=== PATIENT | male | born 2000 | race African-American/Black ===

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

== ENCOUNTER 2020-07-11 19:21 | Emergency (ER) | payer MEDICAID ==
[~2020-07-11] VITALS: Ht 160 cm; Wt 55.1 kg
[~2020-07-11 19:21] MED LIST: LOPE2CAP PO; ONDA8TAB9 PO
[2020-07-11] MEDS ORDERED: normal saline 1000ML IV soln IVB STA (19:34)
[2020-07-11] MEDS ORDERED: diphenhydrAMINE 50 mg/ml inj IV ONE (19:35)
[2020-07-11] MEDS ORDERED: methylPREDNISolone sod succ 125mg/2ml vial IV ONE (19:35)
[2020-07-11] MEDS ORDERED: famotidine/PF 10 mg/ml inj IV ONE (19:35)
[2020-07-11] MEDS ORDERED: epiNEPHrine 1 mg/ml inj SQ ONE (19:35)
--- NOTE | 2020-07-11 19:51 | NUR ---
ADRENALIN GIVEN IM PER MD ORDER. AFTER MEDICATION ADMINISTRATION PT STATED HE FELT IF HIS TONGUE WAS NOT QUITE SWOLLEN
[2020-07-11] MEDS ORDERED: PRED10TA PO (20:09)
--- NOTE | 2020-07-11 20:10 | NUR ---
Pt wanting to leave AMA. Pt educated on risks and benefits.
[2020-07-11 20:11] VITALS: BP 136/70
== END 2020-07-11 20:30 | disposition left against medical advice (07) ==
LOC: ER 19:24
DX: T78.40XA Allergy, unspecified, initial encounter (principal); Z88.0 Allergy status to penicillin; Z88.8 Allergy status to other drugs, medicaments and biological substances; Z79.899 Other long term (current) drug therapy
CPT/HCPCS: 96361; 96372; 96374; 96375; 99284; J0171; J1200; J2930; J3490; J7030

== ENCOUNTER 2022-03-23 23:58 | Emergency (ER) | payer MEDICAID ==
[~2022-03-23] VITALS: Ht 154.9 cm; Wt 62.1 kg
[~2022-03-23 23:58] MED LIST changes: +PRED10TA PO
[2022-03-23 23:59] VITALS: BP 120/72
--- NOTE | 2022-03-24 01:58 | NUR ---
LACERATION IRR WITH [employer]ER[facility] WHAT[facility] BETIDINE SHADI. PT TOLERATED PRODCEDURE WELL WITH NO VERBAL OR VISUAL DISCOMFORT OR COMPLAINTS.
--- NOTE | 2022-03-24 03:01 | NUR ---
DRESSING APPLIED TO SUTURE REPAIR SITE.
== END 2022-03-24 03:02 | disposition home or self-care (01) ==
LOC: ER 23:59
DX: S61.213A Laceration without foreign body of left middle finger without damage to nail, initial encounter (principal); Z88.0 Allergy status to penicillin; Z88.8 Allergy status to other drugs, medicaments and biological substances; Z79.899 Other long term (current) drug therapy; X58.XXXA Exposure to other specified factors, initial encounter; Y93.89 Activity, other specified; Y92.89 Other specified places as the place of occurrence of the external cause; Y99.8 Other external cause status
CPT/HCPCS: 12001; 99282

== ENCOUNTER 2022-07-22 14:35 | Emergency (ER) | payer MEDICAID | END 2022-07-22 15:17 | disposition left against medical advice (07) | LOC: ER 14:36 | DX: M79.606 Pain in leg, unspecified (principal); Z53.21 Procedure and treatment not carried out due to patient leaving prior to being seen by health care provider ==

== ENCOUNTER 2023-02-17 18:35 | Emergency (ER) | payer MEDICAID ==
[~2023-02-17] VITALS: Ht 160 cm; Wt 60.9 kg
[2023-02-17 19:17] VITALS: BP 148/122
== END 2023-02-17 21:09 | disposition home or self-care (01) ==
LOC: ER 18:36
DX: S20.219A Contusion of unspecified front wall of thorax, initial encounter (principal); F12.90 Cannabis use, unspecified, uncomplicated; Z88.0 Allergy status to penicillin; Z88.8 Allergy status to other drugs, medicaments and biological substances; V89.2XXA Person injured in unspecified motor-vehicle accident, traffic, initial encounter; Y93.89 Activity, other specified; Y92.89 Other specified places as the place of occurrence of the external cause; Y99.8 Other external cause status
CPT/HCPCS: 71046; 99283

== ENCOUNTER 2023-07-07 17:20 | Emergency (ER) | payer MEDICAID ==
[~2023-07-07] VITALS: Ht 177.8 cm; Wt 61.4 kg
[2023-07-07] MEDS ORDERED: OLANZapine **IM** 10 mg inj. IM ONE (17:25)
[2023-07-07 18:03] LABS: EOSINOPHILS # (AUTO) 0.2 X10'3 (0-0.9); EOSINOPHILS % (AUTO) 3.7 % (0-6); HEMOGLOBIN 14.1 g/dl (14.0-17.9); LYMPHOCYTES # (AUTO) 1.6 X10'3 (1.1-4.8); LYMPHOCYTES % (AUTO) 37.4 % (21-51); MEAN CORPUSCULAR HEMOGLOBIN 29.5 PG (27.0-31.0); MEAN CORPUSCULAR HGB CONC 32.9 g/dL (33.0-36.5); MEAN CORPUSCULAR VOLUME 89.5 FL (78-98); MEAN PLATELET VOLUME 7.3 FL (7.4-10.4); MONOCYTES # (AUTO) 0.3 X10'3 (0-0.9); NEUTROPHILS # (AUTO) 2.2 X10'3 (1.8-7.7); NEUTROPHILS % (AUTO) 49.9 % (42-75); PLATELET COUNT 284 X10'3 (140-440); RED CELL DISTRIBUTION WIDTH 13.9 % (11.5-14.5); WHITE BLOOD COUNT 4.3 X10'3 (4.5-11.0)
[2023-07-07 18:07] LABS: ALANINE AMINOTRANSFERASE 35 U/L (12-78); ALBUMIN/GLOBULIN RATIO 1.2 (1.1-1.5); ALKALINE PHOSPHATASE 83 IU/L (46-116); ANION GAP 10 (8-16); ASPARTATE AMINO TRANSFERASE 31 U/L (10-37); BILIRUBIN,TOTAL 0.3 MG/DL (0.1-1.0); BLOOD UREA NITROGEN 7 MG/DL (7-18); BUN/CREATININE RATIO 9.7 (10.0-20.0); CALCIUM 8.6 MG/DL (8.5-10.1); CHLORIDE 108 MMOL/L (99-107); CREATININE 0.72 MG/DL (0.60-1.10); ETHANOL 131 MG/DL (<10); GLUCOSE 95 MG/DL (70-104); POTASSIUM 3.8 MMOL/L (3.5-5.1); SODIUM 143 MMOL/L (135-145); TOTAL CARBON DIOXIDE 24.7 MMOL/L (24-32); TOTAL PROTEIN 7.3 G/DL (6.4-8.2); eCRCL 140 ML/MIN; eGFR > 90 ML/MIN
--- NOTE | 2023-07-07 18:31 | NUR ---
patient released from behavioral restraints
--- NOTE | 2023-07-07 19:38 | NUR ---
Patient resting in bed quietly with eye closed. Pt provided with 2 warm blankets. No additional needs at this time.
--- NOTE | 2023-07-07 19:38 | NUR ---
PATIENT REFUSED A STRAIGHT CATHETER SUPPLIED URINAL AT BEDSIDE FOR PATIENT TO PROVIDE UA WHEN READY TO VOID
--- NOTE | 2023-07-07 21:58 | NUR ---
The patient moved to bed 22 from the main ER. He was cooperative but sleepy. He changed into green scrubs and he gave urine specimen. He was offered a snack but he declined.
[2023-07-07 22:23] LABS: URINE AMPHETAMINE SCREEN POSITIVE (Neg); URINE BARBITUATE SCREEN NEGATIVE (Neg); URINE BENZODIAZEPINES SCREEN NEGATIVE (Neg); URINE CANNABINOID SCREEN POSITIVE (Neg); URINE COCAINE SCREEN NEGATIVE (Neg); URINE METHADONE SCREEN NEGATIVE (Neg); URINE OPIATE SCREEN NEGATIVE (Neg); URINE PHENCYCLIDINE SCREEN NEGATIVE (Neg)
--- NOTE | 2023-07-07 22:32 | NUR ---
PACKET SENT TO [facility]
--- NOTE | 2023-07-07 22:47 | NUR ---
The patient appears to be sleeping
[2023-07-07 23:58] LABS: THYROID STIMULATING HORMONE 0.38 ulU/ml (0.34-4.50)
--- NOTE | 2023-07-08 00:59 | NUR ---
The patient appears to be sleeping
--- NOTE | 2023-07-08 03:01 | NUR ---
The patient appears to be sleeping
--- NOTE | 2023-07-08 05:11 | NUR ---
The patient appears to be sleeping
--- NOTE | 2023-07-08 08:30 | NUR ---
Pt. asleep in bed on left side. Pt. in no apparent distress.
--- NOTE | 2023-07-08 10:30 | NUR ---
Pt. awoke and eating breakfast.
[2023-07-08 10:56] LABS: BILIRUBIN,URINE NEGATIVE (Neg); CLARITY,URINE CLEAR (Clear); COLOR,URINE YELLOW (Yellow); GLUCOSE, URINE NEGATIVE (Neg); KETONES,URINE NEGATIVE (Neg); LEUKOCYTE ESTERASE ,URINE NEGATIVE (Neg); NITRITES, URINE NEGATIVE (Neg); OCCULT BLOOD,URINE NEGATIVE (Neg); PH,URINE 6.5 (4.8-8.0); PROTEIN,URINE NEGATIVE (Neg); UROBILINOGEN,URINE 0.2 E.U/dL (0.2-1.0)
[2023-07-08 10:58] LABS: UA COLLECTION TYPE NON-SPECIFIED
--- NOTE | 2023-07-08 11:50 | NUR ---
Met with patient in regards to substance/alcohol use and to see if patient was interested in resources for treatment options. Patient is interested in both in and out patient rehabs. I gave patient [facility] number to get that process started, a list of outpatient facilities, a card for [facility] and my card to call me with any questions.
--- NOTE | 2023-07-08 12:30 | NUR ---
Pt. asleep in bed on right side. Pt. in no apparent distress.
[2023-07-08 14:03] VITALS: BP 120/70; PULSE 71; RESP 18; TEMP 98.2; O2SAT 100
== END 2023-07-08 14:00 | disposition still patient (30) ==
LOC: EDBD 17:20 → ER 17:20
DX: Z20.822 Contact with and (suspected) exposure to COVID-19 (principal); T40.2X2A Poisoning by other opioids, intentional self-harm, initial encounter; R41.82 Altered mental status, unspecified; Y92.89 Other specified places as the place of occurrence of the external cause
CPT/HCPCS: 36415; 80053; 80305; 80320; 81003; 84443; 85025; 87811; 96372; 99285; J3490

== ENCOUNTER 2023-09-01 22:37 | Emergency (ER) | payer MEDICAID ==
[~2023-09-01] VITALS: Ht 154.9 cm; Wt 75.5 kg
[2023-09-01 22:38] VITALS: TEMP 95.5
[2023-09-01] MEDS ORDERED: normal saline 1000ML IV soln IVB ONE (22:50)
--- NOTE | 2023-09-01 23:19 | NUR ---
WARM BLANKETS PROVIDED FOR PATIENT. PATIENT ALERT AND ORIENTED. DENIES PAIN OR CONCERNS AT THIS TIME.
[2023-09-02] MEDS ORDERED: normal saline 1000ML IV soln IVB ONE (00:30)
[2023-09-02 00:56] LABS: HEMATOCRIT 43.5 % (42.0-52.0); MEAN CORPUSCULAR HEMOGLOBIN 29.9 PG (27.0-31.0); MEAN PLATELET VOLUME 7.7 FL (7.4-10.4)
[2023-09-02 00:58] LABS: BASOPHILS # (AUTO) 0.1 X10'3 (0-0.2); BASOPHILS % (AUTO) 0.6 % (0-1); EOSINOPHILS # (AUTO) 0.2 X10'3 (0-0.9); EOSINOPHILS % (AUTO) 2.2 % (0-6); HEMOGLOBIN 14.6 g/dl (14.0-17.9); LYMPHOCYTES # (AUTO) 4.4 X10'3 (1.1-4.8); LYMPHOCYTES % (AUTO) 46.9 % (21-51); MEAN CORPUSCULAR HGB CONC 33.5 g/dL (33.0-36.5); MEAN CORPUSCULAR VOLUME 89.1 FL (78-98); MONOCYTES # (AUTO) 1.1 X10'3 (0-0.9); MONOCYTES % (AUTO) 12.1 % (2-12); NEUTROPHILS # (AUTO) 3.6 X10'3 (1.8-7.7); NEUTROPHILS % (AUTO) 38.2 % (42-75); PLATELET COUNT 244 X10'3 (140-440); RED BLOOD COUNT 4.89 X10'6 (4.70-6.10); RED CELL DISTRIBUTION WIDTH 13.8 % (11.5-14.5); WHITE BLOOD COUNT 9.4 X10'3 (4.5-11.0)
[2023-09-02 01:04] LABS: APTT 26 SECONDS (22-32); INR 0.9 INR; PROTHROMBIN TIME 10.2 SECONDS (9.0-12.0)
[2023-09-02 01:16] LABS: ETHANOL 45 MG/DL (<10); MAGNESIUM 2.4 MG/DL (1.5-2.4); PHOSPHORUS 5.6 MG/DL (2.3-4.5); PRO BRAIN NATRIURETIC PEPTIDE < 30 PG/ML (0-125)
[2023-09-02 01:17] LABS: CREATINE KINASE 1147 U/L (39-308)
[2023-09-02 03:52] LABS: ALANINE AMINOTRANSFERASE 30 U/L (12-78); ALBUMIN 4.2 G/DL (3.4-5.0); ALBUMIN/GLOBULIN RATIO 1.2 (1.1-1.5); ALKALINE PHOSPHATASE 65 IU/L (46-116); ANION GAP 16 (8-16); ASPARTATE AMINO TRANSFERASE 49 U/L (10-37); BLOOD UREA NITROGEN 17 MG/DL (7-18); BUN/CREATININE RATIO 15.5 (10.0-20.0); CALCIUM 8.9 MG/DL (8.5-10.1); CHLORIDE 97 MMOL/L (99-107); GLUCOSE 187 MG/DL (70-104); POTASSIUM 3.3 MMOL/L (3.5-5.1); SODIUM 135 MMOL/L (135-145); TOTAL CARBON DIOXIDE 22.1 MMOL/L (24-32); TOTAL PROTEIN 7.6 G/DL (6.4-8.2); eCRCL 78 ML/MIN; eGFR > 90 ML/MIN
[2023-09-02] MEDS ORDERED: potassium Cl 20 mEq SR tablet PO STA (05:41)
--- NOTE | 2023-09-02 06:00 | NUR ---
Per MD the pt is up for D/C but does not have a home at this time. placed an order for social service consult. Once pt meets with social worker health services and is able to walk the pt may be D/C.
[2023-09-02 06:15] VITALS: BP 98/52; PULSE 97; RESP 16; O2SAT 98
--- NOTE | 2023-09-02 06:36 | NUR ---
received report from Andre PRESCOTT assuming care of pt resting quietly resps even and unlabored
[2023-09-02] MEDS ORDERED: BUPR1FIL3 SL (11:05)
--- NOTE | 2023-09-02 11:15 | NUR ---
Met with patient in regards to overdose and to see if patient was interested in resources for treatment options. Patient is interested in starting Suboxone. I spoke with Dr Andrade and he prescribed Suboxone for patient. Patient will continue treatment with [facility]. Patient has my card to call me with any questions.
== END 2023-09-02 09:58 | disposition home or self-care (01) ==
LOC: ER 22:37
DX: T40.411A Poisoning by fentanyl or fentanyl analogs, accidental (unintentional), initial encounter (principal); R41.82 Altered mental status, unspecified; Y92.89 Other specified places as the place of occurrence of the external cause
CPT/HCPCS: 36415; 71045; 80053; 80320; 82550; 83735; 83880; 84100; 84484; 85025; 85610; 85730; 93005; 96360; 96361; 99291; J7030

== ENCOUNTER 2023-09-19 14:51 | Emergency (ER) | payer MEDICAID ==
[~2023-09-19] VITALS: Ht 157.5 cm; Wt 65.5 kg
[2023-09-19 15:15] VITALS: BP 133/76; PULSE 99; RESP 18; TEMP 99.7; O2SAT 98
[2023-09-19] MEDS ORDERED: buprenorphine/naloxone 8MG-2MG SUBlingual film SL SCH ×2 (18:10→18:40)
--- NOTE | 2023-09-19 18:13 | NUR ---
pt was called for medication and left without discharge. XPLVN pt did not recieve medication prior to leaving.
[2023-09-20] MEDS ORDERED: BUPR1FIL3 SL (15:26)
== END 2023-09-19 19:37 | disposition home or self-care (01) ==
LOC: ER 14:51
DX: F11.10 Opioid abuse, uncomplicated (principal); F12.10 Cannabis abuse, uncomplicated; F15.10 Other stimulant abuse, uncomplicated; Z88.8 Allergy status to other drugs, medicaments and biological substances; Z88.0 Allergy status to penicillin; Z79.899 Other long term (current) drug therapy
CPT/HCPCS: 99283

== ENCOUNTER 2023-09-20 15:12 | Emergency (ER) | payer MEDICAID ==
[~2023-09-20] VITALS: Ht 160 cm; Wt 63.0 kg
[2023-09-20 15:16] VITALS: BP 118/75; PULSE 99; TEMP 97.8; O2SAT 98
[2023-09-20] MEDS ORDERED: BUPR1FIL3 SL (15:26)
--- NOTE | 2023-09-20 15:34 | NUR ---
Met with patient for Suboxone refill. Patient is still waiting for appt through [facility]. Spoke to Mitul and he will give patient a weeks supply.
[2023-09-20 15:36] VITALS: RESP 18
--- NOTE | 2023-09-20 15:50 | NUR ---
I have reviewed and agree with all interventions, assessments performed and documented by GENIE Solomon.
== END 2023-09-20 16:53 | disposition home or self-care (01) ==
LOC: ER 15:14
DX: F11.10 Opioid abuse, uncomplicated (principal); F12.10 Cannabis abuse, uncomplicated; F15.10 Other stimulant abuse, uncomplicated; Z88.8 Allergy status to other drugs, medicaments and biological substances; Z79.899 Other long term (current) drug therapy; Z88.0 Allergy status to penicillin
CPT/HCPCS: 99281

== ENCOUNTER 2023-09-22 11:24 | Emergency (ER) | payer MEDICAID ==
[~2023-09-22] VITALS: Ht 157.5 cm; Wt 62.4 kg
[~2023-09-22 11:24] MED LIST changes: +BUPR1FIL3 SL; -LOPE2CAP PO; -ONDA8TAB9 PO; -PRED10TA PO
[2023-09-22 11:27] VITALS: BP 156/89; PULSE 99; RESP 16; TEMP 98.3; O2SAT 98
[2023-09-22 12:24] LABS: BASOPHILS # (AUTO) 0.1 X10'3 (0-0.2); EOSINOPHILS # (AUTO) 0.1 X10'3 (0-0.9); EOSINOPHILS % (AUTO) 1.9 % (0-6); HEMATOCRIT 46.8 % (42.0-52.0); HEMOGLOBIN 15.8 g/dl (14.0-17.9); LYMPHOCYTES # (AUTO) 2.1 X10'3 (1.1-4.8); LYMPHOCYTES % (AUTO) 38.2 % (21-51); MEAN CORPUSCULAR HEMOGLOBIN 30.2 PG (27.0-31.0); MEAN CORPUSCULAR HGB CONC 33.7 g/dL (33.0-36.5); MEAN CORPUSCULAR VOLUME 89.5 FL (78-98); MONOCYTES # (AUTO) 0.4 X10'3 (0-0.9); MONOCYTES % (AUTO) 7.6 % (2-12); NEUTROPHILS # (AUTO) 2.8 X10'3 (1.8-7.7); NEUTROPHILS % (AUTO) 51.3 % (42-75); PLATELET COUNT 348 X10'3 (140-440); RED BLOOD COUNT 5.23 X10'6 (4.70-6.10); RED CELL DISTRIBUTION WIDTH 14.2 % (11.5-14.5); WHITE BLOOD COUNT 5.5 X10'3 (4.5-11.0)
[2023-09-22 12:53] LABS: ALANINE AMINOTRANSFERASE 15 U/L (12-78); ALBUMIN 4.6 G/DL (3.4-5.0); ALBUMIN/GLOBULIN RATIO 1.3 (1.1-1.5); ALKALINE PHOSPHATASE 68 IU/L (46-116); ANION GAP 9 (8-16); ASPARTATE AMINO TRANSFERASE 21 U/L (10-37); BLOOD UREA NITROGEN 5 MG/DL (7-18); BUN/CREATININE RATIO 5.6 (10.0-20.0); CALCIUM 9.3 MG/DL (8.5-10.1); CHLORIDE 101 MMOL/L (99-107); GLUCOSE 106 MG/DL (70-104); POTASSIUM 3.9 MMOL/L (3.5-5.1); SODIUM 138 MMOL/L (135-145); TOTAL CARBON DIOXIDE 28.5 MMOL/L (24-32); TOTAL PROTEIN 8.1 G/DL (6.4-8.2); eCRCL 99 ML/MIN; eGFR > 90 ML/MIN
[2023-09-22 12:56] LABS: ETHANOL < 10 MG/DL (<10); THYROID STIMULATING HORMONE 1.04 ulU/ml (0.34-4.50)
[2023-09-22 14:58] LABS: BILIRUBIN,URINE NEGATIVE (Neg); CLARITY,URINE CLEAR (Clear); COLOR,URINE YELLOW (Yellow); GLUCOSE, URINE NEGATIVE (Neg); KETONES,URINE NEGATIVE (Neg); LEUKOCYTE ESTERASE ,URINE NEGATIVE (Neg); NITRITES, URINE NEGATIVE (Neg); OCCULT BLOOD,URINE NEGATIVE (Neg); PROTEIN,URINE NEGATIVE (Neg); UROBILINOGEN,URINE 0.2 E.U/dL (0.2-1.0)
[2023-09-22 15:03] LABS: UA COLLECTION TYPE VOIDED
[2023-09-22] MEDS ORDERED: BUPR1FIL20 SL (15:06)
--- NOTE | 2023-09-22 15:10 | NUR ---
Patient in room and c/o hearing voices. Patient does not have a psychiatric diagnosis. Patient states he was doing meth and last did meth 1 month ago. Patient denies doing Fentanyl but was found down and hardly breathing. Narcan brought patient awake. Patient is on Suboxone TID. Patient probably did another street drug which had Fentanyl laced in it. Patient appears slightly anxious. Patient wants to go smoke a cigarette. Patient's grandfather at bedside. Continue to monitor.
[2023-09-22 15:19] LABS: URINE AMPHETAMINE SCREEN NEGATIVE (Neg); URINE BARBITUATE SCREEN NEGATIVE (Neg); URINE BENZODIAZEPINES SCREEN NEGATIVE (Neg); URINE CANNABINOID SCREEN NEGATIVE (Neg); URINE COCAINE SCREEN NEGATIVE (Neg); URINE METHADONE SCREEN NEGATIVE (Neg); URINE OPIATE SCREEN NEGATIVE (Neg); URINE PHENCYCLIDINE SCREEN NEGATIVE (Neg)
[2023-09-22] MEDS ORDERED: nicotine 14mg patch - 24hr TD SCH (15:40)
--- NOTE | 2023-09-22 15:56 | NUR ---
Packet Faxed to [facility].
--- NOTE | 2023-09-22 16:05 | NUR ---
Patient given warm blankets. RN offerred patient apple sauce. Patient refused but grandfather ate one. Patient now has a nicotine patch. Continue to monitor.
--- NOTE | 2023-09-22 16:40 | NUR ---
Demetria ROSARIO, evaluating patient. Grandfather at bedside. Continue ot monitor.
[2023-09-22] MEDS ORDERED: buprenorphine/naloxone 8MG-2MG SUBlingual film SL SCH (21:00)
== END 2023-09-22 17:15 | disposition home or self-care (01) ==
LOC: ER 11:25
DX: R44.0 Auditory hallucinations (principal); Z20.822 Contact with and (suspected) exposure to COVID-19; F19.10 Other psychoactive substance abuse, uncomplicated; F29 Unspecified psychosis not due to a substance or known physiological condition
CPT/HCPCS: 36415; 80053; 80305; 80320; 81003; 84443; 85025; 87811; 99285

== ENCOUNTER 2023-10-15 19:22 | Emergency (ER) | payer MEDICAID ==
[~2023-10-15] VITALS: Ht 157.5 cm; Wt 62.7 kg
[~2023-10-15 19:22] MED LIST changes: +BUPR1FIL20 SL; -BUPR1FIL3 SL
[2023-10-15 19:45] LABS: BASOPHILS # (AUTO) 0.1 X10'3 (0-0.2); BASOPHILS % (AUTO) 0.8 % (0-1); EOSINOPHILS # (AUTO) 0.2 X10'3 (0-0.9); EOSINOPHILS % (AUTO) 1.6 % (0-6); HEMATOCRIT 50.5 % (42.0-52.0); HEMOGLOBIN 16.9 g/dl (14.0-17.9); LYMPHOCYTES # (AUTO) 3.7 X10'3 (1.1-4.8); LYMPHOCYTES % (AUTO) 35.2 % (21-51); MEAN CORPUSCULAR HEMOGLOBIN 29.7 PG (27.0-31.0); MEAN CORPUSCULAR HGB CONC 33.5 g/dL (33.0-36.5); MEAN CORPUSCULAR VOLUME 88.8 FL (78-98); MEAN PLATELET VOLUME 6.5 FL (7.4-10.4); MONOCYTES % (AUTO) 9.1 % (2-12); NEUTROPHILS # (AUTO) 5.6 X10'3 (1.8-7.7); NEUTROPHILS % (AUTO) 53.3 % (42-75); PLATELET COUNT 314 X10'3 (140-440); RED BLOOD COUNT 5.69 X10'6 (4.70-6.10); RED CELL DISTRIBUTION WIDTH 13.4 % (11.5-14.5); WHITE BLOOD COUNT 10.6 X10'3 (4.5-11.0)
[2023-10-15 19:51] VITALS: TEMP 97.9
[2023-10-15 19:59] LABS: ALANINE AMINOTRANSFERASE 45 U/L (12-78); ALBUMIN 4.9 G/DL (3.4-5.0); ALBUMIN/GLOBULIN RATIO 1.2 (1.1-1.5); ALKALINE PHOSPHATASE 70 IU/L (46-116); ANION GAP 9 (8-16); ASPARTATE AMINO TRANSFERASE 22 U/L (10-37); BILIRUBIN,TOTAL 1.3 MG/DL (0.1-1.0); BLOOD UREA NITROGEN 18 MG/DL (7-18); BUN/CREATININE RATIO 16.7 (10.0-20.0); CALCIUM 9.7 MG/DL (8.5-10.1); CHLORIDE 98 MMOL/L (99-107); CREATININE 1.08 MG/DL (0.60-1.10); GLUCOSE 111 MG/DL (70-104); POTASSIUM 3.6 MMOL/L (3.5-5.1); SODIUM 137 MMOL/L (135-145); TOTAL CARBON DIOXIDE 29.9 MMOL/L (24-32); eGFR > 90 ML/MIN
[2023-10-15 20:09] LABS: PRO BRAIN NATRIURETIC PEPTIDE < 30 PG/ML (0-125)
[2023-10-15 20:59] VITALS: BP 128/84; PULSE 113; RESP 12; O2SAT 99
[2023-10-15] MEDS ORDERED: LORazepam 1 MG tablet PO ONE (22:35)
== END 2023-10-15 23:10 | disposition home or self-care (01) ==
LOC: ER 19:23
DX: F19.10 Other psychoactive substance abuse, uncomplicated (principal); F17.200 Nicotine dependence, unspecified, uncomplicated; F12.10 Cannabis abuse, uncomplicated; F15.10 Other stimulant abuse, uncomplicated; Z88.8 Allergy status to other drugs, medicaments and biological substances; Z88.0 Allergy status to penicillin; Z79.899 Other long term (current) drug therapy
CPT/HCPCS: 36415; 71045; 80053; 83880; 84484; 85025; 93005; 99285

== ENCOUNTER 2023-10-25 12:52 | Emergency (ER) | payer MEDICAID ==
[~2023-10-25] VITALS: Ht 157.5 cm; Wt 63.6 kg
[2023-10-25 13:49] LABS: BASOPHILS # (AUTO) 0.1 X10'3 (0-0.2); BASOPHILS % (AUTO) 0.9 % (0-1); EOSINOPHILS # (AUTO) 0.2 X10'3 (0-0.9); EOSINOPHILS % (AUTO) 2.9 % (0-6); HEMATOCRIT 45.1 % (42.0-52.0); HEMOGLOBIN 14.9 g/dl (14.0-17.9); LYMPHOCYTES # (AUTO) 2.5 X10'3 (1.1-4.8); LYMPHOCYTES % (AUTO) 32.4 % (21-51); MEAN CORPUSCULAR HEMOGLOBIN 29.2 PG (27.0-31.0); MEAN CORPUSCULAR VOLUME 88.4 FL (78-98); MEAN PLATELET VOLUME 6.7 FL (7.4-10.4); MONOCYTES # (AUTO) 0.7 X10'3 (0-0.9); MONOCYTES % (AUTO) 8.6 % (2-12); NEUTROPHILS # (AUTO) 4.2 X10'3 (1.8-7.7); NEUTROPHILS % (AUTO) 55.2 % (42-75); PLATELET COUNT 293 X10'3 (140-440); RED CELL DISTRIBUTION WIDTH 13.2 % (11.5-14.5); WHITE BLOOD COUNT 7.6 X10'3 (4.5-11.0)
[2023-10-25 14:04] LABS: ALANINE AMINOTRANSFERASE 27 U/L (12-78); ALBUMIN 4.1 G/DL (3.4-5.0); ALBUMIN/GLOBULIN RATIO 1.3 (1.1-1.5); ALKALINE PHOSPHATASE 66 IU/L (46-116); ANION GAP 6 (8-16); ASPARTATE AMINO TRANSFERASE 18 U/L (10-37); BILIRUBIN,TOTAL 0.9 MG/DL (0.1-1.0); BLOOD UREA NITROGEN 10 MG/DL (7-18); BUN/CREATININE RATIO 12.8 (10.0-20.0); CALCIUM 8.6 MG/DL (8.5-10.1); CHLORIDE 104 MMOL/L (99-107); CREATININE 0.78 MG/DL (0.60-1.10); GLUCOSE 75 MG/DL (70-104); POTASSIUM 3.8 MMOL/L (3.5-5.1); SODIUM 139 MMOL/L (135-145); TOTAL CARBON DIOXIDE 28.7 MMOL/L (24-32); TOTAL PROTEIN 7.3 G/DL (6.4-8.2); eCRCL 114 ML/MIN; eGFR > 90 ML/MIN
[2023-10-25 14:05] LABS: ETHANOL < 10 MG/DL (<10); SALICYLATE 3.3 MG/DL (4.0-20.0)
[2023-10-25 14:09] LABS: ACETAMINOPHEN < 2.0 UG/ML (10-30)
[2023-10-25 16:22] LABS: BILIRUBIN,URINE NEGATIVE (Neg); CLARITY,URINE CLEAR (Clear); COLOR,URINE YELLOW (Yellow); GLUCOSE, URINE NEGATIVE (Neg); KETONES,URINE NEGATIVE (Neg); LEUKOCYTE ESTERASE ,URINE NEGATIVE (Neg); NITRITES, URINE NEGATIVE (Neg); OCCULT BLOOD,URINE NEGATIVE (Neg); PROTEIN,URINE NEGATIVE (Neg); UROBILINOGEN,URINE 0.2 E.U/dL (0.2-1.0)
[2023-10-25 16:25] LABS: UA COLLECTION TYPE CLN CATCH MIDSTREAM
[2023-10-25 16:31] LABS: URINE AMPHETAMINE SCREEN POSITIVE (Neg); URINE BARBITUATE SCREEN NEGATIVE (Neg); URINE BENZODIAZEPINES SCREEN NEGATIVE (Neg); URINE CANNABINOID SCREEN NEGATIVE (Neg); URINE COCAINE SCREEN NEGATIVE (Neg); URINE METHADONE SCREEN NEGATIVE (Neg); URINE OPIATE SCREEN NEGATIVE (Neg); URINE PHENCYCLIDINE SCREEN NEGATIVE (Neg)
[2023-10-25] MEDS ORDERED: ziprasidone IM 20mg inj **IM only IM ONE (17:35)
[2023-10-25] MEDS ORDERED: nicotine 7mg patch - 24hr TD ONE (18:10)
[2023-10-26 06:35] VITALS: BP 118/77; PULSE 80; TEMP 98.5; O2SAT 98
[2023-10-26] MEDS ORDERED: NICO-630 TD (07:28)
[2023-10-26 08:15] VITALS: RESP 16
[2023-10-26] MEDS ORDERED: buprenorphine/naloxone 8MG-2MG SUBlingual film SL SCH (13:00)
[2023-10-27] MEDS ORDERED: nicotine 7mg patch - 24hr TD SCH (08:00)
== END 2023-10-26 12:10 | disposition home or self-care (01) ==
LOC: ER 12:52
DX: F29 Unspecified psychosis not due to a substance or known physiological condition (principal); Z20.822 Contact with and (suspected) exposure to COVID-19; F15.10 Other stimulant abuse, uncomplicated; F20.9 Schizophrenia, unspecified; Z88.0 Allergy status to penicillin; Z88.8 Allergy status to other drugs, medicaments and biological substances
CPT/HCPCS: 36415; 70450; 80053; 80305; 80320; 80329; 81003; 85025; 87811; 96372; 99285; J3486